=== PATIENT | female | born 1940 | race Caucasian/White ===

== ENCOUNTER 2020-04-15 01:30 | Observation (INO) | payer MEDICARE, OTHER, SELFPAY ==
[2020-04-15] VITALS (13 sets, daily range): BP systolic 115–165; BP diastolic 46–83; PULSE 91–119; RESP 20–25; TEMP 36.3–36.6; O2SAT 87–96; BMI 26.0
--- NOTE | 2020-04-15 | ECHO_ITS ---
Patient Info Name: Kaylie Gandhi Age: 79 years : 1940 Gender: Female Ht: 67 in Wt: 158 lbs BSA: 1.85 m2 HR: 103 bpm BP: 139 / 53 mmHg Technical Quality: Fair Exam Date: 04/15/2020 1:38 PM Exam Location: [facility] Patient Status: Inpatient Admit Date: 04/15/2020 Staff Ordering Physician: Dudley Shankar MD Performance Test Consultant: Cathy Grayson RDCS Attending Provider: Denilson Chan DO Referring Physician: Vonnie SHAFFER; Exam Type: CA echo doppler color flow Study Info Indications - elevated troponin Complete two-dimensional, color flow and Doppler transthoracic echocardiogram is performed. Summary 1. Complete two-dimensional, color flow and Doppler transthoracic echocardiogram is performed. 2. Left ventricular chamber dimension is normal. 3. Left ventricular systolic function is hyperdynamic, estimated at >70%. 4. There is mildly increased left ventricular wall thickness. 5. The left ventricular diastolic function is grade I diastolic dysfunction. 6. E/e' 17 is elevated. 7. The mitral valve has moderately calcified annulus. 8. There is trace tricuspid valve regurgitation. 9. No pulmonary hypertension, estimated pulmonary arterial systolic pressure is 38 mmHg. Left Ventricle E/e' 17 is elevated. Left ventricular chamber dimension is normal. Left ventricular systolic function is hyperdynamic, estimated at >70%. There is mildly increased left ventricular wall thickness. The left ventricular diastolic function is grade I diastolic dysfunction. Right Ventricle Right ventricular chamber dimension is normal. Right ventricular systolic function is normal. Left Atria Left atrial chamber dimension is normal. Right Atria Right atrial chamber dimension is normal. Aortic Valve The aortic valve is trileaflet. There is no aortic valve stenosis. There is no aortic valve regurgitation. Pulmonic Valve There is no pulmonic regurgitation. Mitral Valve The mitral valve has moderately calcified annulus. There is no mitral valve stenosis. There is no mitral valve regurgitation. Tricuspid Valve There is trace tricuspid valve regurgitation. No pulmonary hypertension, estimated pulmonary arterial systolic pressure is 38 mmHg. Pericardium/Pleural There is no pericardial effusion. Inferior Vena Cava Normal inferior vena cava with >50% collapse upon inspiration consistent with normal right atrial pressure, 5 mmHg. Aorta The aortic root size at the sinus of Valsalva is normal. Left Ventricular Outflow Tract Name Value Normal LVOT 2D LVOT Diameter 2.0 cm LVOT Doppler LVOT Peak Velocity 118 cm/s LVOT Peak Gradient 6 mmHg LVOT Mean Gradient 3 mmHg LVOT VTI 22 cm LVOT VTI/AV VTI Ratio 1.0 LVOT Stroke Volume 68 ml LVOT CO 7.3 l/min LVOT CI 3.9 l/min/m2 Pulmonic Valve
--- NOTE | ~2020-04-15 | XR_ITS ---
EXAMINATION: XR chest 1V portable EXAM DATE: 04/15/2020 17:21 INDICATION: Shortness of breath, nausea and vomiting. TECHNIQUE: Portable AP frontal chest x-ray was obtained. There is no prior study for comparison. FINDINGS: Small amount of patchy ill-defined right-sided airspace disease suspected, could be acute i nfectious process. Left lung is clear. Cardiomediastinal silhouette is normal. Mild hyperinflation. T here is aortic arteriosclerosis. The bones are osteopenic. There are bony degenerative changes. IMPRESSION: 1. Suspect small amount of ill-defined right-sided acute airspace disease, could be acute infectious process. Reviewed, dictated and finalized at location A. 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 Suspect small amount of ill-defined right-sided acute airspace disease, cou ld be acute infectious process.
--- NOTE | ~2020-04-15 | CT_ITS ---
EXAMINATION:CT chest wo con DATE: 04/16/2020 13:40 INDICATION: Abnormal chest radiograph. TECHNIQUE: Computed tomography (CT) of the chest was performed without intravenous contrast. Automate d exposure control and iterative reconstruction technique were employed. The dose-length product (DLP ) was 189.27 mGy-cm. COMPARISON: Chest single view 04/15/2020 FINDINGS: There is mild emphysema. There is mild scarring at the lung apices. A calcified right lung nodule and calcified right hilar lymph nodes are consistent with old granulomatous disease. There is a 13 mm cavitary nodule in left upper lobe. There is a 14 mm nodule in lingula with volume loss that may be atelectasis. There are several scattered nodules and part-solid nodules in the lungs bilateral ly. No pleural effusion. The heart size is normal. There are coronary artery calcifications. No peric ardial effusion. There is mild thoracic spondylosis. There is a chronic burst fracture of L1. IMPRESSION: 1. Multiple pulmonary nodules and part solid nodules. Most of these findings are probably infection, but some are suspicious for malignancy. The morphology of the 13 mm cavitary left upper lobe nodule i s in particular suspicious for malignancy. Noncontrast chest CT is recommended in 3 months. 2. Mild emphysema. Reviewed, dictated and finalized at location A. 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 Multiple pulmonary nodules and part solid nodules. Most of these findings ar e probably infection, but some are suspicious for malignancy. The morphology of the 13 mm cavitary left upper lobe nodule is in particular suspicious for paola gnancy. Noncontrast chest CT is recommended in 3 months. 2. Mild emphysema.
--- NOTE | 2020-04-15 01:30 | PC.NURSE ---
This patient, Kaylie Gandhi, was admitted to [facility] Patient/family oriented to hospital policies and general routines including ID bracelet, bed and alarms, visiting hours, pain management, procedures, bathroom and other care routines, personal items, smoking policy, room service/diet, and visiting hours. Information on how to activate the Rapid Response Team has been discussed. Patient/Family are encouraged to report perceived risks to care and to ask questions if they do not understand what they are told or what they should do.
--- NOTE | 2020-04-15 01:42 | PM.IMHP ---
H&P: HPI History of Present Illness Date/Time: 04/15/20 01:42 Chief Complaint: Intractable nausea vomiting Narrative: Kaylie Gandhi is a 79 year old female with past medical history of anxiety and kidney stone who presents the ED with complaints of intractable nausea. A few days ago she went to the ED with complaints of abdominal pain and was found to have a kidney stone. She was given Flomax and since then has had hematuria and resolution of pain. Patient no longer has abdominal pain or dysuria or hematuria. She developed a headache and took 1 of the [place] that she was prescribed when diagnosed with kidney stones. Since taking the [place] she has had intractable nausea. Her symptoms were nonexertional and persistent. She states she smokes daily pack a day. She states she was quit smoking I offered her cessation advice. She would like to quit on her own without pharmacological agents. In the ED at [facility] in [place]: Patient was given Zofran x2, 1L fluid bolus, aspirin 324mg, 1g tylenol. Vital stables. EKG sinus tachycardia. Troponin 0.056 increased to 0.083. She was then started on heparin drip. Patient's heart score is 4 (age, smoking risk factor, initial troponins slightly above normal). flu and rapid covid negative. other labs stable, lactic 1.1. CXR negative. Patient admitted for observation for elevated troponins and intractable nausea. Review of Systems Review of Systems: Narrative: Constitutional: No Fever, No Chills, No Night Sweats, No Fatigue, No Malaise ENT/Mouth: No Hearing Changes, No Ear Pain, No Nasal Congestion, No Sinus Pain, No Hoarseness, No sore throat, No Rhinorrhea, No Swallowing Difficulty Eyes: No Eye Pain, No Redness, No Vision Changes Cardiovascular: No Chest Pain, No Palpitations, No Dyspnea on Exertion, No Orthopnea, No Claudication, No Edema Respiratory: No Cough, No Sputum, No Wheezing, No Shortness of Breath Gastrointestinal: Intractable nausea and vomiting. Abdominal pain resolved. No Diarrhea, No Constipation, No Abdominal Pain, No Heartburn, No Hematochezia, No Melena Genitourinary: No Dysuria, No Urinary Frequency, No Urinary Incontinence, No Urgency. Hematuria resolved Musculoskeletal: No Arthralgias, No Myalgias, No Joint Swelling, No Joint Stiffness, No Back Pain Skin: No Skin Lesions, No Pruritis, No Hair Changes Neuro: No Weakness, No Numbness, No Paresthesias, No Loss of Consciousness, No Syncope, No Dizziness, No Headache Psych: No Anxiety/Panic, No Depression, No Insomnia Heme: No Bruising, No Bleeding Lymph: No Adenopathy Endocrine: No Polyuria, No Polydipsia, No Temperature Intolerance [facility] Past Medical History Medical History (Updated 04/15/20 @ 02:12 by Denilson Chan DO) Anxiety Kidney stone Surgical History Surgical History (Updated 04/15/20 @ 02:32 by Denilson Chan DO) H/O section H/O: hysterectomy History of appendectomy Family History Family History (Updated 04/15/20 @ 02:07 by Mayelin Sanchez RN) Father Liver cancer Social History Social History (Updated 04/15/20 @ 02:36 by Denilson Chan DO) Social History: independent, still drives, very active, lives with son Smoking packs per day: 1 Smoking cigarettes per day: 20.0 Years smoked: 65 Smoking pack-years: 65.00 Smoking status: Current every day smoker Tobacco type: cigarettes Alcohol intake: former Substance use: current Substance use type: does not use Living arrangements: with family Additional living arrangements comments: son and grandson Spiritual care concerns: No Meds Home Medications and Allergies Home Medications Medication Instructions Recorded Confirmed Type citalopram 20 mg PO DAILY 04/15/20 04/15/20 History Allergies Allergy/AdvReac Type Severity Reaction Status Date / Time Penicillins Allergy Mild Hives Verified 04/15/20 02:31 Exam Narrative: Exam Narrative: - GENERAL: Pleasant
[2020-04-15 03:23] LABS: Troponin I 0.066 ng/mL (0.000-0.034)
--- NOTE | 2020-04-15 04:49 | PC.NURSE ---
PT. arrived to unit at 0130 with heparin drip infusing at 800units/hr (8ml/hr). Patient's repeat troponin level resulted and MD Mascorro notified of result of 0.066. Heparin infusion discontinued at 0330 per MD Mascorro.
[2020-04-15 06:21] LABS: Anion Gap 1 mmol/L (8-16); Blood Urea Nitrogen 21 mg/dL (7-17); Calcium 8.3 mg/dL (8.4-10.2); Carbon Dioxide 35 mmol/L (22-30); Chloride 102 mmol/L (98-107); Estimated CRCL calculation 61 ml/min; Estimated Glomerular Filt Rate > 60; Glucose 107 mg/dL (65-105); Potassium 4.6 mmol/L (3.4-5.0); Sodium 138 mmol/L (137-145)
[2020-04-15 06:28] LABS: Troponin I 0.057 ng/mL (0.000-0.034)
[2020-04-15 06:37] LABS: Basophils Percent Auto 0.3 % (0.2-1.2); Eosinophils Percent Auto 0.2 % (0-4.4); Hematocrit 37.6 % (37.0-47.0); Hemoglobin 12.3 g/dL (12.0-15.0); Immature Granulocyte Absolute 0.03 K/mm3 (0.00-0.031); Immature Granulocyte Percent A 0.5 % (0-0.5); Lymphocytes Absolute Auto 1.43 K/mm3 (0.9-3.2); Lymphocytes Percent Auto 21.9 % (18.3-44.2); Mean Corpuscular HGB Conc 32.7 g/dl (32-36); Mean Corpuscular Hemoglobin 32.7 pg (26-34); Mean Platelet Volume 10.5 fl (7.4-10.4); Monocytes Absolute Auto 0.5 K/mm3 (0.1-0.6); Monocytes Percent Auto 7.7 % (2.6-8.5); Neutrophils Absolute Auto 4.5 K/mm3 (1.3-6.7); Neutrophils Percent Auto 69.4 % (45.5-73.1); Platelet Count Result 252 k/mm3 (150-375); Red Blood Count 3.76 M/mm3 (4.2-5.4); Red Cell Distribution Width 13.9 % (11.5-14.5); White Blood Count 6.5 K/mm3 (4.5-10.0)
[2020-04-15] MEDS: CITALOPRAM HYDROBROMIDE 20 MG TABLET PO (08:16)
--- NOTE | 2020-04-15 10:23 | ECG_ITS ---
Measurements Intervals Meally Rate: 108 P: 78 OK: 182 QRS: 68 QRSD: 86 T: 64 QT: 310 QTc: 416 Interpretive Statements SINUS TACHYCARDIA BORDERLINE ST-T WAVE ABNORMALITY- DIFFUSE LEADS BASELINE WANDER- V2-V6 ABNORMAL ECG Electronically Signed On 04-15-2020 10:57:56 SWORD SWALLOWER by Edmundo Caban D.O.
[2020-04-15] MEDS: ACETAMINOPHEN 500 MG TABLET 1000 MG PO (10:41)
--- NOTE | 2020-04-15 11:02 | PC.NURSE ---
1045 - Pt c/o 07/07. Dr Shankar called and made aware, orders noted for Tylenol. Tyelenol administered per order. Will re-assess for effectiveness
[2020-04-15 11:24] LABS: Troponin I 0.044 ng/mL (0.000-0.034)
[2020-04-15] MEDS: ONDANSETRON INJ 4 MG/2 ML VIAL IV PUSH ×2 (14:00→20:23)
[2020-04-15] MEDS: MORPHINE SULFATE (*CRX) 2 MG/ML INJ 1 MG IV PUSH (14:30)
--- NOTE | 2020-04-15 14:49 | PM.IMPN ---
Progress Note: A&P Assessment and Plan (1) Kidney stone: Code(s): N20.0 - Calculus of kidney Status: Acute Assessment and Plan: Non obstructive Supportive care IV hydration (2) Intractable nausea and vomiting: Code(s): R11.2 - Nausea with vomiting, unspecified Status: Acute Assessment and Plan: Likely secondary to number 1 Supportive care (3) Elevated troponin: Code(s): R77.8 - Other specified abnormalities of plasma proteins Status: Acute Assessment and Plan: Trending down No symptoms 2DECHO done ECG with unspecific changes Follow up in the outpatient setting. Subjective Date/time seen: 04/15/20 14:49 I feel fine. No new issues. Review of Systems Review of Systems: Narrative: Patient admitted due to nephritic colic. Constitutional: Comments: no fevers, no chills, no rigors. Eyes: Comments: no vision changes. ENT: Comments: no ear ache, no throat pain, no nasal congestion. Cardiovascular: Comments: no chest pain. Respiratory: Comments: no sob, no cough, no sputum production. Gastrointestinal: Comments: nausea and vomiting Genitourinary: Genitourinary: Reports as per HPI Comments: Nephritic colic. Musculoskeletal: Comments: no muscle aches or pains. Integumentary/Breasts: Comments: no rashes. Neurologic: Comments: no sensory motor deficit. Exam Narrative: Exam Narrative: Lying in bed. Const: General: cooperative, healthy appearing, comfortable, no acute distress, alert, awake and Physically active Nutritional Appearance: average body habitus Limitations: no limitations HENMT: Head: normal to inspection and normocephalic Ears: hearing grossly normal bilaterally General nose exam: Normal external nose present Face and sinus: normal facial exam Eyes: General: appearance normal, both eyes and all related structures Pupils: Equal, round and reactive pupils present EOM: EOMs intact bilaterally Neck: Neck: no lymphadenopathy, supple and no JVD Resp: Effort & Inspection: able to speak in complete sentences Auscultation: clear to auscultation bilaterally Cardio: Jugular venous distension: no JVD Rate: regular rate Rhythm: regular rhythm GI: Inspection: normal to inspection GI Palp: Yes Soft to palpation and Yes No hepatosplenomegaly present Skin: General skin exam: normal color Neuro: General: patient oriented x3 and CN's II-XI intact bilaterally Cranial nerves: Yes CN's II-XII intact bilaterally and Yes Equal, round and reactive pupils present Cognition (Neuro): normal cognition Speech: normal speech Motor exam (neuro): 5/5 motor strength present throughout Sensory Exam: normal sensation Extrem: General: normal to inspection, full ROM, no joint enlargement and no pedal edema Objective Data Vital Signs Vital Signs: Vital Signs - 24 hr 04/15/20 01:40 04/15/20 02:00 04/15/20 03:07 Temperature 97.3 F L Pulse Rate 102 H 96 Respiratory Rate 20 20 Blood Pressure 127/49 L Pulse Oximetry 96 96 87 L 04/15/20 04:00 04/15/20 06:00 04/15/20 08:00 Temperature 97.5 F L 97.9 F Pulse Rate 91 105 H 100 Respiratory Rate 21 H 24 H Blood Pressure 115/46 L 127/63 Pulse Oximetry 91 91 04/15/20 10:00 04/15/20 12:00 Temperature 97.7 F Pulse Rate 95 103 H Respiratory Rate 22 H Blood Pressure 139/53 L Pulse Oximetry 96 Meds/Results Medications: Active Medications Generic Name Dose Route Start Last Admin Trade Name Freq PRN Reason Stop Dose Admin Acetaminophen 1,000 mg 04/15/20 10:36 04/15/20 10:41 Acetaminophen 500 Mg Tablet PO 1,000 mg Q6H PRN Administration Mild Pain (1-3) or Fever Citalopram Hydrobromide 20 mg 04/15/20 09:00 04/15/20 08:16 Citalopram Hydrobromide 20 Mg Tablet PO 20 mg DAILY BRIAN Administration Morphine Sulfate 1 mg 04/15/20 14:30 Morphine Sulfate (*Crx) 2 Mg/Ml Inj IV PUSH 04/15/20 14:31 ONCE ONE Ondansetron HCl 4 mg 04/15/20 02:40 03/30
--- NOTE | 2020-04-15 15:03 | PC.NURSE ---
Late entry for 1400 - Pt C/O nausea. 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
--- NOTE | 2020-04-15 15:04 | PC.NURSE ---
Late entry for 1430- Pt C/O right abd pain, stated is same pain as before with kidney stones. pain 11/06. Dr Shankar called and orders received for Morphine 1 mg IV X 1.
[2020-04-15] MEDS: NICOTINE (*PBKC) 21 MG PATCH 1 PATCH TRANSDERM (18:44)
--- NOTE | 2020-04-15 18:46 | PC.NURSE ---
Entry for 1829 - Dr. Shankar called to report CXR results, pt continued nausea and that pt requested a nicotine patch. Orders noted for nicotine patch and antibiotics.
[2020-04-15] MEDS: IPRATROPIUM BR 0.02% INH SOLN 0.5 MG/2.5 ML VIAL INHALATION (21:48)
[2020-04-15] MEDS: METOCLOPRAMIDE HCL INJ 10 MG/2 ML VIAL IV PUSH (23:05)
[2020-04-16] VITALS (14 sets, daily range): BP systolic 144–166; BP diastolic 60–85; PULSE 96–123; RESP 20–32; TEMP 36.4–37.1; O2SAT 85–98
[2020-04-16] MEDS: LORazepam INJ (*CRX) 2 MG/ML VIAL 0.5 MG IV PUSH (00:05)
[2020-04-16] MEDS: ALBUTEROL SULFATE NEB 2.5 MG/3 ML INH INHALATION ×2 (03:23→03:25)
[2020-04-16] MEDS: IPRATROPIUM BR 0.02% INH SOLN 0.5 MG/2.5 ML VIAL INHALATION (03:26)
[2020-04-16] MEDS: CITALOPRAM HYDROBROMIDE 20 MG TABLET PO (09:18)
--- NOTE | 2020-04-16 10:42 | PM.CNPUL ---
Assessment and Plan Assessment and plan (1) COPD (chronic obstructive pulmonary disease): Code(s): J44.9 - Chronic obstructive pulmonary disease, unspecified Status: Acute Assessment and Plan: - will start Spiriva 18 mcg 1 puff daily - will start Symbicort 160/4.5 mcg 2 puffs bid - can d/c ipratropium and change albuterol neb to PRN - agree with nicotine patch for smoking cessation - f/u in our pulmonary clinic in 6-8 weeks (2) Lesion of right lung: Code(s): R91.1 - Solitary pulmonary nodule Status: Acute Assessment and Plan: Ill defined right upper lobe lung lesion without signs of respiratory infectious symptoms. - will order a CT chest to make sure this is not a malignancy. History of Present Illness History of Present Illness Consult date: 04/16/20 Chief complaint: Chest Pain, R/O [place] Narrative: 79 y/o female chronic smoker presents with nausea vomiting, right flank pain with hematuria. She was found to have nephrolithiasis. I was asked to see her for exertional hypoxia.O2 sats were dropping into 80's on ambulation. She denies purulent cough, fever, chills or night sweats. She does get a little short of breath and has wheezing and chest tightness on occasion. She has a 50-60 pack year smoking history. CXR reports a right sided ill defined lesion. She was started on duonebs and levaquin. She feels better and is tolerating some PO intake Review of Systems Review of Systems: All systems reviewed & are unremarkable except as noted in HPI and below PMFSH Past Medical History Medical History (Updated 04/16/20 @ 10:53 by Pamela Benitez MD) Anxiety Kidney stone Surgical History Surgical History (Updated 04/15/20 @ 02:32 by Denilson Chan DO) H/O section H/O: hysterectomy History of appendectomy Family History Family History (Updated 04/15/20 @ 02:07 by Mayelin Sanchez RN) Father Liver cancer Social History Social History (Updated 04/15/20 @ 02:36 by Denilson Chan DO) Social History: independent, still drives, very active, lives with son Smoking packs per day: 1 Smoking cigarettes per day: 20.0 Years smoked: 65 Smoking pack-years: 65.00 Smoking status: Current every day smoker Tobacco type: cigarettes Alcohol intake: former Substance use: current Substance use type: does not use Living arrangements: with family Additional living arrangements comments: son and grandson Spiritual care concerns: No Meds Home Medications and Allergies Home Medications Medication Instructions Recorded Confirmed Type citalopram 20 mg PO DAILY 04/15/20 04/15/20 History Allergies Allergy/AdvReac Type Severity Reaction Status Date / Time Penicillins Allergy Mild Hives Verified 04/15/20 02:31 Vital Signs Vital Signs - 24 hr 04/15/20 12:00 04/15/20 14:00 04/15/20 16:00 Temperature 36.5 C 36.6 C Pulse Rate 103 H 104 H 104 H Respiratory Rate 22 H 24 H Blood Pressure 139/53 L 147/63 H Pulse Oximetry 96 94 04/15/20 18:00 04/15/20 20:00 04/15/20 22:00 Temperature 36.4 C Pulse Rate 104 H 111 H 119 H Respiratory Rate 25 H Blood Pressure 165/83 H Pulse Oximetry 89 L 04/16/20 00:00 04/16/20 02:00 04/16/20 04:00 Temperature 36.4 C L 36.4 C Pulse Rate 107 H 108 H 116 H Respiratory Rate 24 H 30 H Blood Pressure 161/85 H 166/75 H Pulse Oximetry 96 90 04/16/20 04:46 04/16/20 06:00 Temperature Pulse Rate 102 H Respiratory Rate Blood Pressure Pulse Oximetry 92 Exam Const: General: cooperative, healthy appearing, comfortable, no acute distress, well developed, alert, awake and Physically active Nutritional Appearance: average body habitus and well nourished Orientation/consciousness: oriented to person, oriented to place, oriented to time and patient oriented x3 Limitations: no limitations HENMT: Head: normal to inspection, normocephalic and atraumatic Eyes: Gene
--- NOTE | 2020-04-16 12:48 | HOMEO2EVAL ---
Home Oxygen Evaluation RC: Home Oxygen (O2) Evaluation Start: 04/16/20 10:42 Freq: ONCE Status: Active Protocol: RPE Activity Type Activity Date Activity User E-Sign Co-Sign Detail Recorded Client Recorded Date Recorded By Document 04/16/20 11:30 INDERJIT [id number] 04/16/20 12:48 INDERJIT Document 04/16/20 11:33 INDERJIT [email or web address] 04/16/20 12:48 INDERJIT Document 04/16/20 11:35 INDERJIT [email or web address] 04/16/20 12:48 INDERJIT Document 04/16/20 11:40 INDERJIT [email or web address] 04/16/20 12:48 INDERJIT Document 04/16/20 11:45 INDERJIT [id number] 04/16/20 12:48 INDERJIT 04/16/20 04/16/20 04/16/20 11:30 11:33 11:35 Home O2 Evaluation Test Phase Resting Resting Resting Oxygen Delivery Room Air Nasal Cannula Nasal Cannula Oxygen Flow Rate (L/min) 1 2 Pulse Oximetry (90-100 %) 85 L 87 L 93 Pulse Rate (60-100 beats/min) 96 Home Oxygen Evaluation Comments Treatment Charges O2 Evaluation 04/16/20 04/16/20 11:40 11:45 Home O2 Evaluation Test Phase Exercise Resting Oxygen Delivery Nasal Cannula Nasal Cannula Oxygen Flow Rate (L/min) 2 2 Pulse Oximetry (90-100 %) 90 94 Pulse Rate (60-100 beats/min) 123 H Home Oxygen Evaluation Comments Pt requires 2 liters at rest and with exertion/ activity Treatment Charges
--- NOTE | 2020-04-16 13:09 | PCRCNOTE ---
HOME O2 EVAL COMPLETED. 2 LITERS RESTING AND WITH EXERTION. WILL ARRANGE SET UP WITH [facility]. FAXED OVER PAPERWORK AND ORDER, TANK DELIVERED TO PT ROOM FOR TRANSPORT HOME. IF POSSIBLE CALL [facility] AT [phone] ONCE DISCHARGED TO NOTIFY ALL IS READY FOR HOME DELIVERY. PT WILL BE INSTRUCTED TO CALL WELL.
--- NOTE | 2020-04-16 14:01 | PC.NURSE ---
1400 Pt ate most of lunch at 1130. Just returned from CT of chest. Denies any nausea. Pt states her appetite feels much improved and is interested in an afternoon snack or another lunch. Oxygen extension tubing added so she can ambulate to bathroom without removing oxygen and without dips in oxygen saturation. Pt wants to go home today if possible.
--- NOTE | 2020-04-16 14:59 | PM.DS ---
DS: Admitting Diagnosis Admitting Diagnosis Admitting Diagnosis: Abdominal pain Nephritic colic Tobacco dependence DS: Discharge Diagnosis Discharge Diagnosis (1) Kidney stone: Code(s): N20.0 - Calculus of kidney Status: Acute Assessment and Plan: Patient was able to pass the stone on her own. (2) Intractable nausea and vomiting: Code(s): R11.2 - Nausea with vomiting, unspecified Status: Acute Assessment and Plan: Likely secondary to kidney stone Treated symptomatically. (3) COPD (chronic obstructive pulmonary disease): Code(s): J44.9 - Chronic obstructive pulmonary disease, unspecified Status: Acute Assessment and Plan: Started on breathing treatments. (4) Lesion of right lung: Code(s): R91.1 - Solitary pulmonary nodule Status: Acute Assessment and Plan: Old lesion will follow up in the outpatient setting. (5) Elevated troponin: Code(s): R77.8 - Other specified abnormalities of plasma proteins Status: Acute Assessment and Plan: Was felt that was a non significant raise as it remained flat and there was no peak. (6) Anxiety: Code(s): F41.9 - Anxiety disorder, unspecified Status: Acute Assessment and Plan: Was treated with Xanax DS: Summary Hospital Course Hospital Course: 79 y/o female chronic smoker presents with nausea vomiting, right flank pain with hematuria. She was found to have nephrolithiasis. Pulmonology was asked to see her for exertional hypoxia.O2 sats were dropping into 80's on ambulation. She denied purulent cough, fever, chills or night sweats. She does get a little short of breath and has wheezing and chest tightness on occasion. She has a 50-60 pack year smoking history. CXR reports a right sided ill defined lesion. She was started on duonebs and levaquin. Patient was started on Levaquin and was sent home on Oxygen with follow up in the clinic with Pulmonary. Patient was able to pass her kidney stone on her own. Cardiology was not consulted as Trop did not peak and remained flat it was felt not needed. EXAMINATION:CT chest wo con DATE: 04/16/2020 13:40 INDICATION: Abnormal chest radiograph. TECHNIQUE: Computed tomography (CT) of the chest was performed without intravenous contrast. Automated exposure control and iterative reconstruction technique were employed. The dose-length product (DLP) was 189.27 mGy-cm. COMPARISON: Chest single view 04/15/2020 FINDINGS: There is mild emphysema. There is mild scarring at the lung apices. A calcified right lung nodule and calcified right hilar lymph nodes are consistent with old granulomatous disease. There is a 13 mm cavitary nodule in left upper lobe. There is a 14 mm nodule in lingula with volume loss that may be atelectasis. There are several scattered nodules and part-solid nodules in the lungs bilaterally. No pleural effusion. The heart size is normal. There are coronary artery calcifications. No pericardial effusion. There is mild thoracic spondylosis. There is a chronic burst fracture of L1. IMPRESSION: 1. Multiple pulmonary nodules and part solid nodules. Most of these findings are probably infection, but some are suspicious for malignancy. The morphology of the 13 mm cavitary left upper lobe nodule is in particular suspicious for malignancy. Noncontrast chest CT is recommended in 3 months. 2. Mild emphysema. Summary 1. Complete two-dimensional, color flow and Doppler transthoracic echocardiogram is performed. 2. Left ventricular chamber dimension is normal. 3. Left ventricular systolic function is hyperdynamic, estimated at >70%. 4. There is mildly increased left ventricular wall thickness. 5. The left ventricular diastolic function is grade I diastolic dysfunction. 6. E/e' 17 is elevated. 7. The mitral valve has moderately calcified annulus. 8. There is trace tricuspid valve regurgitation. 9. No pulmonary hypertension, e
--- NOTE | 2020-04-16 16:57 | PC.NURSE ---
1615 - Iv d/c'd from left forearm, catheter intact, no redness at site. Discharge instructions reviewed with patient. Scripts given, left via wheelchair to son's vehicle to go home. Pt lives with her son. Pt sent home with oxygen. Home services to meet the pt and family for home oxygen therapy at 1800 tonight. Pt with stated understanding of information given.
== END 2020-04-16 16:20 | disposition home health service (06) ==
PROVIDERS: Admitting Provider Student in an Organized Health Care Education/Training Program; PCP Internal Medicine; Visit Provider Internal Medicine
DX: N20.0 Calculus of kidney (principal); R11.2 Nausea with vomiting, unspecified; R77.8 Other specified abnormalities of plasma proteins; R79.89 Other specified abnormal findings of blood chemistry; J44.9 Chronic obstructive pulmonary disease, unspecified; R91.1 Solitary pulmonary nodule; I36.1 Nonrheumatic tricuspid (valve) insufficiency; I05.8 Other rheumatic mitral valve diseases; F41.9 Anxiety disorder, unspecified; F17.210 Nicotine dependence, cigarettes, uncomplicated
CPT/HCPCS: 36415; 71045; 71250; 80048; 83735; 84484; 85025; 93005; 93306; 94618; 94640; 96374; 96375; 96376; A9270; G0378; J2060; J2270; J2405; J2765

== ENCOUNTER 2021-07-21 07:29 | Emergency (ER) | payer MEDICARE, OTHER, SELFPAY ==
[2021-07-21] VITALS (7 sets, daily range): BP systolic 110–146; BP diastolic 38–58; PULSE 100–120; RESP 16–28; TEMP 36.8; O2SAT 93–98
--- NOTE | ~2021-07-21 | XR_ITS ---
XR chest 1V portable 07/21/2021 07:51 Indication: Low oxygen. Dyspnea. Procedure: AP portable chest Comparison: 04/15/2022 Findings: A left hilum has a masslike appearance, suspicious for lymphadenopathy. Recommend correlati on with contrast-enhanced CT. There is left lower lobe airspace disease, suspicious for pneumonia. Ce ntrally obstructing mass not excluded. There is atherosclerosis. Heart size normal. Right lung clear. Impression: 1: Masslike appearance to left hilum. Correlation with contrast-enhanced CT recommended. 2: Left lower lobe airspace disease, suspicious for pneumonia. Reviewed, dictated and finalized at location A. Impression: 1: Masslike appearance to left hilum. Correlation with contrast-enhanced CT rec ommended. 2: Left lower lobe airspace disease, suspicious for pneumonia.
--- NOTE | 2021-07-21 07:37 | ECG_ITS ---
Measurements Intervals [place] Rate: 100 P: 64 DC: 178 QRS: 53 QRSD: 84 T: 52 QT: 330 QTc: 426 Interpretive Statements SINUS TACHYCARDIA NONSPECIFIC T-WAVE ABNORMALITY ABNORMAL ECG COMPARED TO ECG 04/15/2020 10:46:06 T-WAVE ABNORMALITY NOW PRESENT Electronically Signed On 07-21-2021 15:56:47 CDT by Bebeto Marsh M.D.
[2021-07-21 08:17] LABS: Basophils Percent Auto 0.4 % (0.2-1.2); Eosinophils Absolute Auto 0.7 K/mm3 (0-0.3); Eosinophils Percent Auto 7.9 % (0-4.4); Hemoglobin 9.3 g/dL (12.0-15.0); Immature Granulocyte Absolute 0.07 K/mm3 (0.00-0.031); Immature Granulocyte Percent A 0.8 % (0-0.5); Lymphocytes Absolute Auto 1.39 K/mm3 (0.9-3.2); Lymphocytes Percent Auto 16.3 % (18.3-44.2); Mean Corpuscular Hemoglobin 30.4 pg (26-34); Mean Corpuscular Volume 101.3 fl (80-100); Mean Platelet Volume 8.7 fl (7.4-10.4); Monocytes Absolute Auto 1.9 K/mm3 (0.1-0.6); Monocytes Percent Auto 21.7 % (2.6-8.5); Neutrophils Absolute Auto 4.5 K/mm3 (1.3-6.7); Neutrophils Percent Auto 52.9 % (45.5-73.1); Platelet Count Result 476 k/mm3 (150-375); Red Blood Count 3.06 M/mm3 (4.2-5.4); White Blood Count 8.5 K/mm3 (4.5-10.0)
[2021-07-21 08:36] LABS: Alanine Aminotransferase 11 U/L (4-35); Alkaline Phosphatase 120 U/L (38-126); Aspartate Amino Transferase 26 U/L (14-36); Bilirubin,Total 0.6 mg/dL (0.2-1.3); Blood Urea Nitrogen 8 mg/dL (7-17); Calcium 8.4 mg/dL (8.4-10.2); Carbon Dioxide > 40 mmol/L (22-30); Chloride 94 mmol/L (98-107); Estimated CRCL calculation 89 ml/min; Estimated Glomerular Filt Rate > 60; Glucose 113 mg/dL (65-110); Potassium 4.1 mmol/L (3.4-5.0); Sodium 135 mmol/L (137-145)
--- NOTE | 2021-07-21 09:08 | PC.NURSE ---
Pt requesting meal at this time. MD notified and ok with pt eating.
--- NOTE | 2021-07-21 09:29 | PC.NURSE ---
Pt given breakfast tray. Pt asking for son to come up. Spoke with son and he states that he will get someone to come up to be with here
[2021-07-21 09:48] LABS: SARS-CoV-2 RNA PCR Negative
--- NOTE | 2021-07-21 10:40 | PC.NURSE ---
Pt refusing CT at this time. Pt states she is aware of the mass on her lung and is being treated.
--- NOTE | 2021-07-21 11:30 | ED.SOB ---
HPI - SOB/Dyspnea General Chief Complaint: Shortness of Breath/Dyspnea Stated Complaint: SOB Time Seen by Provider: 07/21/21 08:35 Mode of arrival: EMS Limitations: dementia History of Present Illness HPI Narrative: 80-year-old with a history of COPD on 3 L of oxygen at home, pneumonia, cellulitis, depression was [facility] from [facility] with complaints of shortness of breath. Patient states states that she is not short of breath does not have chest pain no history of fever. She denied any nausea or vomiting. She does not want to stay here wants to go back home. As per the [facility] records patient had a SPO2 of 79 to 82%. MD elicited complaint: shortness of breath Pertinent past history: COPD Onset (ago): day(s) (1) Timing: improved Exacerbating factors: nothing Relieving factors: oxygen Known history of: COPD Associated symptoms: denies other symptoms Related Data Home oxygen amount: 3 liters Home Medications Medication Instructions Recorded Confirmed citalopram 20 mg PO DAILY 04/15/20 04/15/20 acetaminophen 650 mg PO ONCE PRN 07/21/21 alprazolam 07/21/21 citalopram 10 mg PO DAILY 07/21/21 enoxaparin 40 mg SUBCUT DAILY 07/21/21 fentanyl 1 patch TRANSDERMAL Q72H 07/21/21 ferrous sulfate 324 mg PO DAILY 07/21/21 furosemide 40 mg PO DAILY 07/21/21 hydrocodone-acetaminophen 1 tablet PO Q6H PRN 07/21/21 ipratropium-albuterol 3 ml INHALATION Q6H PRN 07/21/21 loperamide 2 mg PO Q6H PRN 07/21/21 lorazepam [Ativan] 0.5 mg PO DAILY PRN 07/21/21 metoprolol tartrate 25 mg PO BID 07/21/21 polyethylene glycol 3350 [Miralax] 17 g PO DAILY 07/21/21 sennosides [senna] 8.6 mg PO DAILY 07/21/21 tramadol mg 07/21/21 Allergies Allergy/AdvReac Type Severity Reaction Status Date / Time Penicillins Allergy Mild Hives Verified 04/15/20 02:31 Cephalosporins Allergy Unknown Verified 07/21/21 08:02 levofloxacin Allergy Unknown Verified 07/21/21 08:02 Review of Systems Constitutional: Constitutional: Reports no additional constitutional complaints Eyes: Eyes: Reports no additional eye complaints Cardiovascular: Cardiovascular: Reports no additional cardiovascular complaints Respiratory: Respiratory: Reports as per HPI Gastrointestinal: Gastrointestinal: Reports no additional gastrointestinal complaints Musculoskeletal: Musculoskeletal: Reports no additional musculoskeletal complaints Integumentary/Breasts: Skin/Breast: Reports system reviewed and no additional complaints, except as docu PMFSH Past Medical History Medical History Anxiety Kidney stone Surgical History Surgical History H/O section H/O: hysterectomy History of appendectomy Family History Family History Father Liver cancer Social History Social History Social History: independent, still drives, very active, lives with son Smoking packs per day: 1 Smoking cigarettes per day: 20.0 Years smoked: 65 Smoking pack-years: 65.00 Smoking status: Current every day smoker Tobacco type: cigarettes Alcohol intake: former Substance use: current Substance use type: does not use Additional living arrangements comments: son and grandson Spiritual care concerns: No Exam Narrative: GENERAL: Well-appearing, well-nourished, and in no acute distress. HEAD: Normocephalic, atraumatic. EYES: PERRLA and EOMI.. NECK: Supple. CHEST: Clear to auscultation. No respiratory distress. HEART: Regular rate and rhythm. No murmur heard. Normal peripheral pulses. ABDOMEN: Soft, nontender, nondistended, normal active bowel sounds. EXTREMITIES: Normal range of motion. No edema. SKIN: Warm, dry, no rash. NEURO: No focal deficits. Alert and oriented x3. PSYCH: Normal mood and affect. Course Course Emergency Course: [facility]
--- NOTE | 2021-07-21 11:35 | PC.NURSE ---
Pt wanting to leave at this time, attempting to get out of bed, being verbally aggressive with staff. Pt placed on a bed alarm at this time. Pt son called to come and get her. He states he will attempt to call his to come and get her
--- NOTE | 2021-07-21 12:39 | PC.NURSE ---
Pt still attempting to get out of bed and yelling. Placed sitter at bedside for pt safety
== END 2021-07-21 13:27 ==
PROVIDERS: Emergency Provider Family Medicine; PCP Internal Medicine
DX: R91.8 Other nonspecific abnormal finding of lung field (principal); J44.9 Chronic obstructive pulmonary disease, unspecified; Z20.822 Contact with and (suspected) exposure to COVID-19; F41.9 Anxiety disorder, unspecified; Z87.01 Personal history of pneumonia (recurrent); Z87.442 Personal history of urinary calculi; F17.210 Nicotine dependence, cigarettes, uncomplicated; R00.0 Tachycardia, unspecified; R94.31 Abnormal electrocardiogram [ECG] [EKG]
CPT/HCPCS: 36415; 71045; 80053; 85025; 93005; 99284; C9803; U0003; U0005